=== PATIENT | female | born 1950 | race Caucasian/White ===

== ENCOUNTER 2016-12-26 21:20 | Outpatient (CLI) | payer MEDICARE, OTHER ==
[~2016-12-26 21:20] MED LIST: AZIT-21 PO; CYCL10TA9 PO; DEXL60CA5 PO; FEXO1TAB42 PO; MULT-963 PO; OMEP-10 PO; OXYC-12 PO; PLAQUENIL PO; SIMV40TA2 PO
== END 2016-12-27 06:45 | disposition home or self-care (01) ==
LOC: SLEEP 21:20
PROVIDERS: ATTEND Nurse Practitioner Family
DX: G47.33 Obstructive sleep apnea (adult) (pediatric) (principal)
CPT/HCPCS: 95811

== ENCOUNTER → 2018-05-19 | Outpatient (CLI) | payer MEDICARE, OTHER ==
--- NOTE | 2018-05-19 10:32 | Diagnostic Imaging Report ---
PROCEDURE: MRI left upper extremity without contrast. TECHNIQUE: Multiplanar, multisequence non contrast-enhanced MRI of the left upper extremity was accomplished. Indication: Injury to the left shoulder with left shoulder pain. History of surgery in 2010 Comparison: 07/28/2011 Findings: There are postsurgical changes in the left humeral head from prior rotator cuff repair including suture anchors. No acute fracture is seen. Alignment appears normal. There is a minimal glenohumeral joint effusion. There is a small high-grade partial thickness tear of the distal supraspinatus tendon (image 10 series 6), measuring approximately 8 mm AP, with intrasubstance extension medially, and a intramuscular cyst seen. No large full-thickness tear is seen. Minimal fluid is seen in the subacromial subdeltoid bursa. No high-grade partial-thickness or full-thickness tear is seen of the infraspinatus tendon although there may be mild bursal surface fraying distally. The subscapularis tendon appears intact. The teres minor tendon is intact. The long head of the biceps tendon appears normal in course and signal. The glenoid labrum is suboptimally evaluated in the absence of intra-articular contrast, but no para-labral cysts are seen. The spinoglenoid and suprascapular notches appear clear. The acromion has a curved undersurface without significant downsloping or hooking. The coracoclavicular and coracoacromial ligaments appear intact. There appears to be prior acromioplasty changes. There is widening of the acromion clavicular joint, likely postsurgical as well. No soft tissue fluid collections are seen. There is mild atrophy of the supraspinatus musculature. No axillary lymphadenopathy is seen. Impression: 1. Postsurgical changes from prior left rotator cuff repair and acromioplasty. There is a small high-grade partial thickness bursal surface tear of the left supraspinatus tendon, with intrasubstance extension. There is mild atrophy of the supraspinatus muscle. 2. Low-grade fraying of the bursal surface infraspinatus tendon. Dictated by: Dictated on workstation # [id number]
== END ==
LOC: RAD 08:38
PROVIDERS: ATTEND Orthopaedic Surgery
DX: S49.92XA Unspecified injury of left shoulder and upper arm, initial encounter (principal); S46.012A Strain of muscle(s) and tendon(s) of the rotator cuff of left shoulder, initial encounter; M62.512 Muscle wasting and atrophy, not elsewhere classified, left shoulder; M67.814 Other specified disorders of tendon, left shoulder; M75.102 Unspecified rotator cuff tear or rupture of left shoulder, not specified as traumatic; Z98.890 Other specified postprocedural states
CPT/HCPCS: 73221

== ENCOUNTER → 2020-12-01 | Outpatient (CLI) | payer MEDICARE, OTHER | LOC: CARD 10:16 | PROVIDERS: ATTEND Internal Medicine Cardiovascular Disease | DX: I11.9 Hypertensive heart disease without heart failure (principal); I65.23 Occlusion and stenosis of bilateral carotid arteries | CPT/HCPCS: 93306 ==

== ENCOUNTER → 2021-04-07 | Outpatient (CLI) | payer MEDICARE, OTHER ==
[~2021-04-07] MED LIST changes: +CATHETER FLUSH 10 ML SYR IV PRN
[2021-04-07 09:47] VITALS: BP 154/73
[2021-04-07 09:58] VITALS: BP 180/76
--- NOTE | 2021-04-07 12:39 | Cardiology Stress Test Report ---
Stress Test Report Date of Procedure/Referring: Date of Procedure: Apr 07, 2021 PCP Raj Yadav MD Admitting Physician Darnell Quiles DO Indications: HTN Baseline Heart Rate: 104 Baseline Blood Pressure: Blood Pressure Systolic: 180 Blood Pressure Diastolic: 76 Vital Signs Date Time Temp Pulse Resp B/P (MAP) Pulse Ox O2 Delivery O2 Flow Rate FiO2 04/07/21 09:47 95 20 154/73 (100) Room Air 04/07/21 09:58 99 Baseline Vital Signs Vital Signs Date Time Temp Pulse Resp B/P (MAP) Pulse Ox O2 Delivery O2 Flow Rate FiO2 04/07/21 09:47 95 20 154/73 (100) Room Air 04/07/21 09:58 99 Baseline EKG: Baseline EKG: NSR Summary: After explaining the procedure and details to the patient, she signed the consent and was brought to the stress nuclear laboratory. Patient exercised on standard [facility] protocol, EKG, heart rate and blood pressure were monitored continuously, resting and stress doses of radio tracer were injected, imaging was acquired and reviewed in the short axis, horizontal long axis and vertical long axis views Patient was able to exercise for a total of 3 minutes on [facility] protocol, METs 4.4 Maximum heart rate 138 Maximum blood pressure 180/74 Stress EKG, Minimal nondiagnostic changes Recovery EKG, Return to baseline TID: 0.86 SSS: 5 SDS: 4 EF: 73 Conclusion: 1. Fair exercise tolerance for 3 minutes on standard [facility] protocol, 4.4 METS achieving 92% of maximal expected heart rate 2. Baseline sinus tachycardia with appropriate heart rate response to exercise, severe hypertensive response to exercise with peak blood pressure 184/74, return to baseline during recovery 3. Minimal nondiagnostic EKG changes with exercise return to baseline during recovery 4. Mild reversible ischemia involving the mid to apical inferior wall 5. Normal left ventricular size, EF 73% RAJ YADAV MD Apr 07, 2021 12:38
== END ==
LOC: CARD 08:00
PROVIDERS: ATTEND Internal Medicine Cardiovascular Disease
DX: I10 Essential (primary) hypertension (principal); I65.23 Occlusion and stenosis of bilateral carotid arteries; I25.89 Other forms of chronic ischemic heart disease; R00.0 Tachycardia, unspecified
CPT/HCPCS: 78452; 93017; A9502

== ENCOUNTER 2021-04-14 08:00 | Day surgery (SDC) | payer MEDICARE, OTHER ==
[~2021-04-14] VITALS: Ht 170.2 cm; Wt 111.4 kg
[2021-04-14] VITALS (10 sets, daily range): BP systolic 123–195; BP diastolic 64–113
[2021-04-14 07:22] LABS: HEMATOCRIT 44 % (35-52); HEMOGLOBIN 14.6 g/dL (11.5-16.0); MEAN CORPUSCULAR HEMOGLOBIN 30 pg (25-34); MEAN CORPUSCULAR HGB CONC 33 g/dL (32-36); MEAN CORPUSCULAR VOLUME 89 fL (80-99); MEAN PLATELET VOLUME 9.7 fL (9.0-12.2); PLATELET COUNT 320 10^3/uL (130-400); WHITE BLOOD COUNT 10.3 10^3/uL (4.3-11.0)
[2021-04-14 07:31] LABS: ALBUMIN 4.1 GM/DL (3.2-4.5); POTASSIUM 3.5 MMOL/L (3.6-5.0)
[2021-04-14 07:32] LABS: CALCIUM 9.5 MG/DL (8.5-10.1)
[2021-04-14 07:33] LABS: TOTAL PROTEIN 6.7 GM/DL (6.4-8.2)
[2021-04-14 07:34] LABS: PROTHROMBIN TIME PATIENT 13.1 SEC (12.2-14.7)
[2021-04-14 07:35] LABS: BILIRUBIN,TOTAL 0.3 MG/DL (0.1-1.0)
[2021-04-14 07:37] LABS: CREATININE SERUM 0.72 MG/DL (0.60-1.30)
--- NOTE | 2021-04-14 07:42 | Diagnostic Imaging Report ---
INDICATION: Coronary artery disease COMPARISON: None. FINDINGS: Single view chest demonstrates slight cardiac enlargement. Lungs are clear. There is no pneumothorax but osseous structures normal. IMPRESSION: No acute cardiopulmonary findings. Dictated by: Dictated on workstation # [id number]
[~2021-04-14 08:00] MED LIST changes: +ACET325T38 PO; +CARI350T PO; -CATHETER FLUSH 10 ML SYR IV PRN; +CETI10TA49 PO; +FURO20TA4 PO; +HEParin (CATH LAB) 2,000 ML IV ONE; +LIDOCAINE 1% INJ 20 ML 20 ML VIAL ONE; +LOSA100T57 PO; +METO-351 PO; +MULT-1136 PO; +NS IV 1000 ML 1,000 ML IV SCH; +NS IV 1000 ML 1,000 ML ONE; +OMEG1CAP24 PO; +OMEP40CA6 PO; +SIMV40TA25 PO; +SUCR1TAB PO; +VIT1CAPS44 PO
--- NOTE | 2021-04-14 09:02 | Discharge Inst-Post CATH ---
Discharge Inst-CATH/EP Problems Reviewed?: Yes Post Cardiac Cath/EP D/C Inst Follow Up/Plan Appointment with Dr. Yadav's office in 4 weeks <b>CARDIAC CATH/EP PROCEDURE DISCHARGE INSTRUCTIONS</b> ACTIVITY * Go Home directly and rest. * Limit activity of the leg (or wrist if it was used) for 7 days including aerobics, swimming, jogging, bicycling, etc. * Restrict stair-climbing for 7 days if possible, if not, climb up with your non-cath leg, then bring together on the same step. * Avoid lifting, pushing, pulling or excessive movement of the affected extremity for 7 days. * Customary sexual activity may be resumed after 2 days-use caution not to use a position that strains or causes pain to the affected extremity. * No driving for 24 hours. * NO SMOKING. * Avoid straining for bowel movements for 7 days. * Gentle walking on level ground is allowed. * Returning to work will depend on the type of procedure and the results. Your doctor will discuss this with you. CALL YOUR DOCTOR FOR ANY OF THE FOLLOWING: *If bleeding from the puncture site occurs- Apply gentle pressure to site with clean cloth and call your doctor or EMS. * If a knot or lump forms under the skin, increases in size, or causes pain. * If bruising appears to be worsening or moving further down your leg instead of disappearing. * Temperature above 101 F. CARE OF YOUR GROIN INCISION; * Bruising or purple discoloration of the skin near the puncture site is common. * You may shower only, no bathtub bathing for 5 days. Be careful to avoid slipping as your leg may feel stiff. * If a closure device was used on your femoral artery, please see the attached guide regarding care of the device and your leg. * Leave dressing on FOR 24 hours. CARE OF YOUR WRIST INCISION; * Bruising or purple discoloration of the skin near the puncture site is common. * You may shower. * DO NOT submerge wrist. * Leave dressing on FOR 24 hours. RAJ YADAV MD Apr 14, 2021 09:02
--- NOTE | 2021-04-14 09:04 | Conscious Sedation/ASA ---
Conscious Sedation Pre-Proced Time 08:00 ASA Score 3 For ASA 3 and 4: Consider anesthesia and medical clearance. Also, for patients with a history of failed moderate sedation consider anesthesia. Airway Lungs Heart ASA score ASA 1: a normal healthy patient ASA 2: a patient with a mild systemic disease (mid diabetes, controlled hypertension, obesity x ASA 3: a patient with a severe systemic disease that limits activity (angina, COPD, prior Myocardial infarction) ASA 4: a patient with an incapacitating disease that is a constant threat to life (CHF, renal failure) ASA 5: a moribund patient not expected to survive 24 hrs. (ruptured aneurysm) ASA 6: a declared brain- patient whose organs are being harvested. For emergent operations, add the letter E after the classification Mallampati Classification Grade 3 Sedation Plan Analgesia, Amnesia, Plan communicated to team members, Discussed options with patient/fam, Discussed risks with patient/fam The patient is an appropriate candidate to undergo the planned procedure, sedation, and anesthesia. The patient immediately re-assessed prior to indication. RAJ BIGGS MD Apr 14, 2021 09:04
--- NOTE | 2021-04-14 09:08 | Cardiac Cath Report ---
Cardiac Cath Report Physician (s)/Helicopter Specialist (s) Physician RAJ BIGGS MD Pre-Procedure Diagnosis Pre-Procedure Diagnosis: Coronary artery disease Post-Procedure Note Procedure Start Date: Apr 14, 2021 Name of Procedure: Left heart catheterization Left ventriculogram Aortic arch angiogram Findings/Procedure Note PROCEDURE NOTE: 71-year-old lady with history of chest pain, hypertension hyperlipidemia in addition to sleep apnea, has been having chest pain and had an abnormal stress test scheduled for cardiac catheterization possible PTCA. After explaining the procedure to the patient, all pros and cons were explained, all questions were answered. The patient signed the consent and then she was placed on the cardiac catheterization laboratory. Groin was prepped SL fashion local anesthesia was used. Sheath placed in the right radial artery. Ragland catheter was advanced to the left ventricular cavity, noted to have significantly elevated left ventricular end-diastolic pressure, I performed left ventriculogram, pullback LV to aorta was done, intubated the right and left coronary system and angiogram was done then pulled back to the aortic arch and decided to evaluate the aortic arch due to her significant hypertension and chest pain. At the end of the procedure the sheath was removed. Vascular band deployed FINDINGS: Hemodynamics LV 130/35, end-diastolic pressure of 35 Aorta 130/74 mean of 99 ANATOMY: Left Main is free of obstructive disease Left Anterior Descending is slightly tortuous with mild disease nonobstructive disease Left Circumflex is large dominant artery with mild disease nonobstructive disease Right Coronary Artery is small nondominant artery with no obstructive disease LV Gram was done showing normal left ventricular size and systolic function ejection fraction 60% Aorta evaluation done with aortic arch showing normal aortic arch, no dissection or aneurysm, normal origin of the right brachiocephalic artery, left carotid and left subclavian arteries. CONCLUSION: 1. Dominant circumflex system with mild coronary artery disease nonobstructive disease 2. Normal left ventricular size and systolic function ejection fraction 60%, elevated left ventricular end-diastolic pressure 3. Normal aortic arch and great vessels of the neck DISCUSSION AND RECOMMENDATION: Medical therapy is recommended, close monitoring to the blood pressure is recommended Anesthesia Type: Conscious Sedation Estimated blood loss (mL): 10 ml Contrast Amount: 69 ml Total Radiation Dose: 457 mGy Post-Procedure Diagnosis Post-operative diagnosis: Chest pain Coronary artery disease Hypertension Hyperlipidemia RAJ BIGGS MD Apr 14, 2021 09:08
[2021-04-14] MEDS ORDERED: NS IV 1000 ML 1,000 ML IV SCH (09:15)
== END 2021-04-14 12:07 | disposition home or self-care (01) ==
LOC: CATH 08:00 → SDC 09:15 → CATH 12:07
PROVIDERS: ATTEND Internal Medicine Cardiovascular Disease
DX: I25.10 Atherosclerotic heart disease of native coronary artery without angina pectoris (principal); I10 Essential (primary) hypertension; R00.0 Tachycardia, unspecified; I25.89 Other forms of chronic ischemic heart disease; G47.33 Obstructive sleep apnea (adult) (pediatric); J44.9 Chronic obstructive pulmonary disease, unspecified; K27.9 Peptic ulcer, site unspecified, unspecified as acute or chronic, without hemorrhage or perforation; E78.2 Mixed hyperlipidemia; I65.23 Occlusion and stenosis of bilateral carotid arteries; Z79.899 Other long term (current) drug therapy
CPT/HCPCS: 36221; 71045; 80053; 80061; 85027; 85610; 85730; 87081; 93458; C1894; 36415